=== PATIENT | male | born 1985 | race Caucasian/White ===

== ENCOUNTER → 2021-01-28 | Outpatient (CLI) | payer OTHER ==
[~2021-01-28] MED LIST: IBUPROFEN600 MG PO
== END ==
LOC: EXRD 14:04
DX: R20.0 Anesthesia of skin (principal); M79.641 Pain in right hand
CPT/HCPCS: 73110; 73130

== ENCOUNTER 2021-03-22 13:40 | Emergency (ER) | payer OTHER ==
[2021-03-22 15:08] LABS: HEMOGLOBIN 15.7 gm/dl (14.0-17.5); RED BLOOD COUNT 5.34 M/UL (4.20-5.50); WHITE BLOOD COUNT 6.7 K/UL (4.5-11.0)
[2021-03-22 15:13] LABS: BUN/CREATININE RATIO 9 (0-10)
== END 2021-03-22 17:56 | disposition home or self-care (01) ==
LOC: ER1 13:40
PROVIDERS: Emergency Medicine
DX: J06.9 Acute upper respiratory infection, unspecified (principal); E87.6 Hypokalemia; Z20.822 Contact with and (suspected) exposure to COVID-19
CPT/HCPCS: 0240U; 71045; 80053; 85025; 99284; J7030

== ENCOUNTER → 2022-01-20 | Outpatient (CLI) | payer OTHER | LOC: EMI 13:56 | DX: H47.20 Unspecified optic atrophy (principal); R90.89 Other abnormal findings on diagnostic imaging of central nervous system | CPT/HCPCS: 70543; 70553; A9577 ==